=== PATIENT | male | born 1995 | race Two or more races ===

== ENCOUNTER 2023-02-13 20:38 | Emergency (ER) | payer SELFPAY ==
[2023-02-13] MEDS ORDERED: Lidocaine 1% with EPINEPHrine 1:100,000 20 ML MDV INJECT ONE (21:24)
[2023-02-13] MEDS ORDERED: Diphtheria,Pertussis(Acell),Tetanus Vaccine 0.5 ML Syringe IM ONE (21:50)
== END 2023-02-13 22:25 | disposition home or self-care (01) ==
LOC: MW.ED 20:38
DX: L05.01 Pilonidal cyst with abscess (principal); Z88.1 Allergy status to other antibiotic agents; Z23 Encounter for immunization
CPT/HCPCS: 10060; 90471; 90715; 99282; 99283-25; J3490

== ENCOUNTER 2023-02-18 16:20 | Emergency (ER) | payer SELFPAY | END 2023-02-18 16:57 | disposition left against medical advice (07) | LOC: MW.ED 16:20 | DX: Z48.02 Encounter for removal of sutures (principal) | CPT/HCPCS: 99281 ==